=== PATIENT | male | born 1940 | race Caucasian/White ===

== ENCOUNTER → 2020-11-25 | Day surgery (SDC) | payer MEDICARE ==
[~2020-11-25] MED LIST: AMLODIPINE BESY10 MG PO; ASPIRIN EC81 MG PO; HCTZ25 MG PO; K-DUR20 MEQ PO; LOSARTAN POTASS25 MG PO; MOBIC15 MG PO; NITROQUIK SL0.4 MG SL; NORCO 5-325 TA1 EACH PO; PROTONIX 40MG T40 MG PO; SYNTHROID25 MCG PO; TOPROL XL 50 MG50 MG PO; VITAMIN D250 MC1 PO
[2020-11-25 08:28] LABS: HCT 48.5 % (42.0-52.0); HGB 16.9 g/dl (13.2-18.0); MCHC 34.8 g/dL (32.0-36.0); MCV 91.9 fL (78.0-100.0); MPV 9.9 fL (6.0-9.5); RBC 5.28 M/uL (4.70-6.00); RDW 12.9 % (11.5-14.0); WBC 9.1 K/uL (4.0-10.5)
[2020-11-25 08:44] LABS: ALBUMIN 4.3 g/dL (3.4-5.0); BUN/CREAT RATIO (CALC) 14.5 RATIO; CREATININE 1.17 mg/dL (0.67-1.17); GLOBULIN (CALCULATION) 3.5 g/dL; POTASSIUM 3.4 mmol/L (3.5-5.1); TOTAL PROTEIN 7.8 g/dL (6.4-8.2)
== END | disposition home or self-care (01) ==
LOC: FAS 07:56
PROVIDERS: Surgery
DX: K64.1 Second degree hemorrhoids (principal); K58.9 Irritable bowel syndrome, unspecified; K57.30 Diverticulosis of large intestine without perforation or abscess without bleeding; I10 Essential (primary) hypertension; E78.00 Pure hypercholesterolemia, unspecified; I25.10 Atherosclerotic heart disease of native coronary artery without angina pectoris; I25.2 Old myocardial infarction; K21.9 Gastro-esophageal reflux disease without esophagitis; E03.9 Hypothyroidism, unspecified; Z20.822 Contact with and (suspected) exposure to COVID-19
CPT/HCPCS: 36415; 80053; J1100; J2250; J2704; J7120

== ENCOUNTER 2021-09-21 06:20 | Inpatient (IN) | payer MEDICARE ==
[~2021-09-21] VITALS: Ht 170.2 cm; Wt 76.9 kg
[2021-09-21 07:46] LABS: BASOPHIL 0.3 % (0-2); EOSINOPHIL 0.3 % (0-7); HCT 51.3 % (42.0-52.0); HGB 17.8 g/dl (13.2-18.0); LYMPHOCYTE 9.5 % (15-48); MCH 32.4 pg (25.0-31.0); MCHC 34.7 g/dL (32.0-36.0); MCV 93.3 fL (78.0-100.0); MONOCYTE 8.9 % (0-12); MPV 9.9 fL (6.0-9.5); NEUTROPHIL 80.5 % (41-80); NRBC 0; PLT 179 K/uL (150-400); RDW 12.5 % (11.5-14.0); WBC 15.7 K/uL (4.0-10.5)
[2021-09-21] MEDS ORDERED: KEFLEX250 MG PO (08:29)
[2021-09-21] MEDS ORDERED: NORCO 5-325 TA1 EACH PO (08:29)
[2021-09-21 09:19] LABS: LACTIC ACID 1.2 mmol/L (0.4-1.9)
[2021-09-21 10:11] LABS: CREATININE 1.18 mg/dL (0.67-1.17); POTASSIUM 3.5 mmol/L (3.5-5.1)
[2021-09-21 10:12] LABS: ALBUMIN 3.6 g/dL (3.4-5.0); BILIRUBIN - TOTAL 1.3 mg/dL (0.2-1.0); GLOBULIN (CALCULATION) 3.2 g/dL; TOTAL PROTEIN 6.8 g/dL (6.4-8.2)
[2021-09-21] MEDS ORDERED: LIPITOR20 MG PO (17:57)
[2021-09-21] MEDS ORDERED: LEVSIN-SL0.125 MG SL (17:58)
[2021-09-22 06:39] LABS: BASOPHIL 0.4 % (0-2); EOSINOPHIL 0.5 % (0-7); HCT 47.1 % (42.0-52.0); LYMPHOCYTE 13.8 % (15-48); MCH 32.1 pg (25.0-31.0); MCV 94.4 fL (78.0-100.0); MONOCYTE 9.1 % (0-12); MPV 10.2 fL (6.0-9.5); NEUTROPHIL 75.8 % (41-80); NRBC 0; PLT 151 K/uL (150-400); RBC 4.99 M/uL (4.70-6.00); RDW 12.5 % (11.5-14.0); WBC 11.4 K/uL (4.0-10.5)
[2021-09-22 07:01] LABS: CREATININE 1.26 mg/dL (0.67-1.17); MAGNESIUM 1.9 mg/dL (1.8-2.4); POTASSIUM 3.7 mmol/L (3.5-5.1)
[2021-09-23] MEDS ORDERED: CEFDINIR300 MG PO (11:44)
[2021-09-23] MEDS ORDERED: AZITHROMYCIN250 MG PO (11:44)
--- NOTE | 2021-09-23 12:31 | NUR ---
MET WITH PT. HE REQUESTED FOR HIS OXYGEN TO COME FROM [facility]. PT. SIGNED CHOICE FORM AND COPY GIVEN. REFERRAL FOR O2 WAS FAXED TO NIKOS AT [facility].
== END 2021-09-23 14:30 | disposition home or self-care (01) | DRG 194 ==
LOC: FER 06:20 → FMS 10:26
PROVIDERS: Emergency Medicine; Internal Medicine; ADMIT Allergy & Immunology Allergy
DX: J18.9 Pneumonia, unspecified organism (principal); I50.32 Chronic diastolic (congestive) heart failure; J98.6 Disorders of diaphragm; Z20.822 Contact with and (suspected) exposure to COVID-19; I11.0 Hypertensive heart disease with heart failure; R09.02 Hypoxemia; E78.5 Hyperlipidemia, unspecified; K21.9 Gastro-esophageal reflux disease without esophagitis; E03.9 Hypothyroidism, unspecified; E87.6 Hypokalemia; G89.4 Chronic pain syndrome; M19.90 Unspecified osteoarthritis, unspecified site; I25.10 Atherosclerotic heart disease of native coronary artery without angina pectoris; S19.9XXS Unspecified injury of neck, sequela; X58.XXXS Exposure to other specified factors, sequela; Z99.81 Dependence on supplemental oxygen; Z95.5 Presence of coronary angioplasty implant and graft; Z90.49 Acquired absence of other specified parts of digestive tract; Z98.890 Other specified postprocedural states
CPT/HCPCS: 36415; 36600; 71045; 71046; 76000; 80048; 80053; 82803; 83036; 83605; 83735; 83880; 84484; 85025; 87040; 93005; 94010; 94640; J0456; J0696; J1650; J7050; U0002

== ENCOUNTER 2022-02-22 09:08 | Emergency (ER) | payer MEDICARE ==
[~2022-02-22 09:08] MED LIST changes: +AZITHROMYCIN250 MG PO; +CEFDINIR300 MG PO; +KEFLEX250 MG PO; +LEVSIN-SL0.125 MG SL; +LIPITOR20 MG PO
[2022-02-22 09:46] LABS: BASOPHIL 0.4 % (0-2); EOSINOPHIL 1.2 % (0-7); HCT 49.7 % (42.0-52.0); HGB 16.9 g/dl (13.2-18.0); LYMPHOCYTE 12.1 % (15-48); MCH 32.4 pg (25.0-31.0); MCV 95.2 fL (78.0-100.0); MONOCYTE 7.1 % (0-12); NEUTROPHIL 78.5 % (41-80); NRBC 0; PLT 157 K/uL (150-400); RBC 5.22 M/uL (4.70-6.00); RDW 13.1 % (11.5-14.0)
[2022-02-22 10:09] LABS: INR 1.07 (0.9-1.2); PROTHROMBIN TIME 13.6 SECONDS (11.9-13.9); PTT 22.2 SECONDS (24.9-34.6)
[2022-02-22 10:15] LABS: ALBUMIN 3.7 g/dL (3.4-5.0); BILIRUBIN - TOTAL 0.8 mg/dL (0.2-1.0); BUN/CREAT RATIO (CALC) 26.4 RATIO; CREATININE 1.4 mg/dL (0.67-1.17); GLOBULIN (CALCULATION) 3.3 g/dL; POTASSIUM 3.9 mmol/L (3.5-5.1)
== END 2022-02-22 17:15 | disposition other institution (70) ==
LOC: FER 09:08
PROVIDERS: Emergency Medicine
DX: I21.4 Non-ST elevation (NSTEMI) myocardial infarction (principal); I12.9 Hypertensive chronic kidney disease with stage 1 through stage 4 chronic kidney disease, or unspecified chronic kidney disease; N18.9 Chronic kidney disease, unspecified; Z88.0 Allergy status to penicillin
CPT/HCPCS: 36415; 71046; 80053; 82553; 84484; 85025; 85610; 85730; 93005; J1644; J7030